=== PATIENT | male | born 1955 | race African-American/Black ===

== ENCOUNTER 2021-08-03 23:29 | Emergency (ER) | payer OTHER ==
[2021-08-03 23:54] LABS: #Monocytes 0.4 10x3/uL (0.0-1.1); %Basophils 0.2 % (0.0-2.0); %Eosinophils 0.8 % (0.0-6.0); %Lymphocytes 9.1 % (18.0-47.0); %Monocytes 8.9 % (0.0-10.0); %Neutrophils 80.6 % (40.0-75.0); Hemoglobin 9.5 g/dL (13.5-17.5); Mean Corpuscular HGB CONC 31.7 g/dL (32.0-36.0); Mean Corpuscular Hemoglobin 28.3 pg (27.0-33.0); Mean Corpuscular Volume 89.3 fl (81.2-95.1); Platelet Count 128 10x3/uL (150-450); Red Blood Cell (RBC) Count 3.36 10x6/uL (4.32-5.72)
[2021-08-04 00:14] LABS: ALT (SGPT) 16 U/L (8-55); AST (SGOT) 22 U/L (5-34); Alkaline Phosphatase 109 U/L (40-110); Anion Gap 16 mmol/L (10-20); BUN (Urea Nitrogen) 22 mg/dL (8.4-25.7); Bilirubin, Total 1.3 mg/dL (0.2-1.2); Calc. Creatinine Clearance 0 mL/min (70-130); Calcium 8.7 mg/dL (7.8-10.44); Carbon Dioxide 22 mmol/L (23-31); Chloride 102 mmol/L (98-107); Globulin 3.2 g/dL (2.4-3.5); Glucose 136 mg/dL (80-115); Potassium 3.9 mmol/L (3.5-5.1); Protein, Total 7.2 g/dL (5.8-8.1); Sodium 136 mmol/L (136-145)
[2021-08-04 00:28] LABS: SARS-CoV-2 NAA Rapid Test Not Detected (NotDetected)
[2021-08-04] MEDS ORDERED: Acetaminophen 500 MG TAB ONE (02:37)
[2021-08-04 06:02] LABS: Troponin I 0.025 ng/mL (< 0.028)
[2021-08-04] MEDS ORDERED: Insulin Regular 300 UNITS/3 ML VIAL ONE (07:54)
[2021-08-04] MEDS ORDERED: Furosemide 40 MG TAB ONE (08:11)
[2021-08-04] MEDS ORDERED: HumuLIN 70/30 (300 UNITS/3 ML VIAL) SC SCH (08:30)
[2021-08-04] MEDS ORDERED: Lisinopril 2.5 MG TAB PO SCH (08:30)
== END 2021-08-04 10:38 | disposition short-term general hospital (02) ==
LOC: EEVIPCON 23:29 → CSHERS 23:29
DX: I11.0 Hypertensive heart disease with heart failure (principal); I50.9 Heart failure, unspecified; N17.9 Acute kidney failure, unspecified; I25.2 Old myocardial infarction; E11.9 Type 2 diabetes mellitus without complications; Z79.4 Long term (current) use of insulin; E03.9 Hypothyroidism, unspecified; E78.5 Hyperlipidemia, unspecified; E78.2 Mixed hyperlipidemia; B20 Human immunodeficiency virus [HIV] disease; Z87.891 Personal history of nicotine dependence; Z79.899 Other long term (current) drug therapy; Z79.82 Long term (current) use of aspirin
CPT/HCPCS: 0240U; 36415; 36416; 71045; 74176; 80053; 83605; 83880; 84484; 85025; 93005; J1815

== ENCOUNTER 2021-12-13 11:55 | Emergency (ER) | payer OTHER ==
[2021-12-13 12:42] LABS: #Eosinphils 0.2 10x3/uL (0.0-0.5); #Monocytes 0.7 10x3/uL (0.0-1.1); #Neutrophils 5.8 10x3/uL (1.5-8.4); %Basophils 0.1 % (0.0-2.0); %Eosinophils 2.8 % (0.0-6.0); %Lymphocytes 12.8 % (18.0-47.0); %Monocytes 9.1 % (0.0-10.0); %Neutrophils 74.9 % (40.0-75.0); Hemoglobin 12.2 g/dL (13.5-17.5); Mean Corpuscular HGB CONC 33.8 g/dL (32.0-36.0); Mean Corpuscular Hemoglobin 29.7 pg (27.0-33.0); Mean Corpuscular Volume 87.8 fl (81.2-95.1); Mean Platelet Volume 10.9 fl (7.4-10.4); Platelet Count 180 10x3/uL (150-450); Red Blood Cell (RBC) Count 4.11 10x6/uL (4.32-5.72); White Blood Cell (WBC) Count 7.7 10x3/uL (3.5-10.5)
[2021-12-13 12:59] LABS: ALT (SGPT) 28 U/L (8-55); AST (SGOT) 27 U/L (5-34); Albumin 3.7 g/dL (3.4-4.8); Alkaline Phosphatase 79 U/L (40-110); Anion Gap 14 mmol/L (10-20); BUN (Urea Nitrogen) 44 mg/dL (8.4-25.7); Bilirubin, Total 1.9 mg/dL (0.2-1.2); Calc. Creatinine Clearance 0 mL/min (70-130); Calcium 9.7 mg/dL (7.8-10.44); Carbon Dioxide 29 mmol/L (23-31); Chloride 94 mmol/L (98-107); Globulin 3.4 g/dL (2.4-3.5); Glucose 214 mg/dL (80-115); Potassium 5.1 mmol/L (3.5-5.1); Protein, Total 7.1 g/dL (5.8-8.1); Sodium 132 mmol/L (136-145)
[2021-12-13 13:51] LABS: CKMB 2.5 ng/mL (0-6.6)
[2021-12-13 14:45] LABS: Bilirubin Neg (Negative); Blood, Urine Negative (Negative); Clarity Slightly Cloudy (Clear); Glucose, Urine (Dipstick) Normal (Negative); Ketone, Urine Negative (Negative); Leukocyte 100 (Negative); Nitrite Negative (Negative); Protein, Urine (Dipstick) Negative (Neg-Trace); Specific Gravity, Urine 1.005 (1.002-1.036)
[2021-12-13 14:57] LABS: Bacteria/HPF 4+ HPF (None Seen); Mucous/LPF None Seen LPF (<2+); RBC/HPF 0-3 HPF (0-3); Squamous Epithelial None Seen HPF (0-3); WBC/HPF 0-3 HPF (0-3)
[2021-12-13 15:06] LABS: SARS-CoV-2 NAA Rapid Test Not Detected (NotDetected)
== END 2021-12-13 21:25 ==
LOC: CSHERS 11:55 → EEVIPCON 11:55 → CSHERS 21:25
DX: R53.1 Weakness (principal); R79.89 Other specified abnormal findings of blood chemistry; Z20.822 Contact with and (suspected) exposure to COVID-19; E11.9 Type 2 diabetes mellitus without complications; Z79.4 Long term (current) use of insulin; J44.9 Chronic obstructive pulmonary disease, unspecified; I11.0 Hypertensive heart disease with heart failure; I50.9 Heart failure, unspecified
CPT/HCPCS: 71045; 72125; 72128; 72131; 80053; 81003; 81015; 82553; 83605; 83690; 84484; 85025; 93005; 94760; U0002

== ENCOUNTER → 2022-04-02 | Emergency (ER) | payer OTHER ==
[~2022-04-02] MED LIST: Diazepam 5 MG TAB ONE; Furosemide 40 MG/4 ML VIAL ONE; cefTRIAXone\\ROCEPHIN 1 GM VIAL ONE
[2022-04-02 14:35] LABS: #Monocytes 0.6 10x3/uL (0.0-1.1); #Neutrophils 4.4 10x3/uL (1.5-8.4); %Basophils 0.4 % (0.0-2.0); %Eosinophils 0.2 % (0.0-6.0); %Lymphocytes 7.4 % (18.0-47.0); %Monocytes 10.2 % (0.0-10.0); %Neutrophils 81.6 % (40.0-75.0); Hemoglobin 9.3 g/dL (13.5-17.5); Mean Corpuscular HGB CONC 32.5 g/dL (32.0-36.0); Mean Corpuscular Hemoglobin 30.9 pg (27.0-33.0); Mean Platelet Volume 11.1 fl (7.4-10.4); Platelet Count 138 10x3/uL (150-450); RBC Distribution Width 15.5 % (11.5-14.5); Red Blood Cell (RBC) Count 3.01 10x6/uL (4.32-5.72); White Blood Cell (WBC) Count 5.4 10x3/uL (3.5-10.5)
[2022-04-02 14:50] LABS: ALT (SGPT) 41 U/L (8-55); AST (SGOT) 42 U/L (5-34); Albumin 3.4 g/dL (3.4-4.8); Alkaline Phosphatase 81 U/L (40-110); Anion Gap 15 mmol/L (10-20); BUN (Urea Nitrogen) 24 mg/dL (8.4-25.7); Bilirubin, Total 1.8 mg/dL (0.2-1.2); Calc. Creatinine Clearance 0 mL/min (70-130); Calcium 9.1 mg/dL (7.8-10.44); Carbon Dioxide 22 mmol/L (23-31); Chloride 100 mmol/L (98-107); Estimated GFR 24; Globulin 3.2 g/dL (2.4-3.5); Glucose 273 mg/dL (80-115); Potassium 4.6 mmol/L (3.5-5.1); Protein, Total 6.6 g/dL (5.8-8.1); Sodium 132 mmol/L (136-145)
[2022-04-02 15:03] LABS: SARS-CoV-2 NAA Rapid Test Not Detected (NotDetected)
[2022-04-02 15:27] LABS: Bilirubin Neg (Negative); Blood, Urine 50 (Negative); Clarity Clear (Clear); Glucose, Urine (Dipstick) Normal (Negative); Ketone, Urine Negative (Negative); Leukocyte 25 (Negative); Nitrite Positive (Negative); Protein, Urine (Dipstick) 30 mg/dl (Neg-Trace); Specific Gravity, Urine 1.015 (1.002-1.036)
[2022-04-02 15:37] LABS: Bacteria/HPF 3+ HPF (None Seen)
== END ==
LOC: CSHERS 13:46
DX: I11.0 Hypertensive heart disease with heart failure (principal); I50.9 Heart failure, unspecified; N17.9 Acute kidney failure, unspecified; N39.0 Urinary tract infection, site not specified; I25.2 Old myocardial infarction; E11.9 Type 2 diabetes mellitus without complications; E03.9 Hypothyroidism, unspecified; E78.5 Hyperlipidemia, unspecified; E78.2 Mixed hyperlipidemia; B20 Human immunodeficiency virus [HIV] disease; J44.9 Chronic obstructive pulmonary disease, unspecified; Z79.4 Long term (current) use of insulin; Z87.891 Personal history of nicotine dependence; Z79.899 Other long term (current) drug therapy; Z20.822 Contact with and (suspected) exposure to COVID-19
CPT/HCPCS: 36415; 51702; 71045; 80053; 81003; 81015; 83880; 84484; 85025; 87077; 87086; 87186; 93005; 96365; 96375; J0696; J1940; U0002

== ENCOUNTER 2023-01-31 20:24 | Emergency (ER) | payer OTHER ==
[2023-01-31 21:56] LABS: #Eosinphils 0.1 10x3/uL (0.0-0.5); #Monocytes 0.7 10x3/uL (0.0-1.1); #Neutrophils 3.3 10x3/uL (1.5-8.4); %Basophils 0.4 % (0.0-2.0); %Eosinophils 2.6 % (0.0-6.0); %Lymphocytes 11.6 % (18.0-47.0); %Monocytes 14.2 % (0.0-10.0); Hemoglobin 9.5 g/dL (13.5-17.5); Mean Corpuscular HGB CONC 32.4 g/dL (32.0-36.0); Mean Corpuscular Hemoglobin 30.6 pg (27.0-33.0); Mean Corpuscular Volume 94.5 fl (81.2-95.1); Mean Platelet Volume 11.4 fl (7.4-10.4); Platelet Count 116 10x3/uL (150-450); RBC Distribution Width 16.2 % (11.5-14.5); White Blood Cell (WBC) Count 4.6 10x3/uL (3.5-10.5)
[2023-01-31 22:06] LABS: ALT (SGPT) 10 U/L (8-55); AST (SGOT) 18 U/L (5-34); Albumin 3.6 g/dL (3.4-4.8); Alkaline Phosphatase 92 U/L (40-110); Anion Gap 13 mmol/L (10-20); BUN (Urea Nitrogen) 29 mg/dL (8.4-25.7); Bilirubin, Total 1.6 mg/dL (0.2-1.2); Calc. Creatinine Clearance 0 mL/min (70-130); Calcium 9.1 mg/dL (7.8-10.44); Carbon Dioxide 25 mmol/L (23-31); Chloride 103 mmol/L (98-107); Estimated GFR 37; Globulin 3.2 g/dL (2.4-3.5); Glucose 98 mg/dL (80-115); Lipase 5 U/L (8-78); Magnesium 2.3 mg/dL (1.6-2.6); Potassium 3.9 mmol/L (3.5-5.1); Protein, Total 6.8 g/dL (5.8-8.1); Sodium 137 mmol/L (136-145)
[2023-01-31] MEDS ORDERED: Ondansetron PF 4 MG/2 ML Vial ONE (22:13)
[2023-01-31] MEDS ORDERED: Morphine 4 MG/ML VIAL ONE (22:16)
[2023-01-31 22:17] LABS: Bilirubin Neg (Negative); Blood, Urine 50 (Negative); Clarity Clear (Clear); Glucose, Urine (Dipstick) Normal (Negative); Ketone, Urine Negative (Negative); Leukocyte 500 (Negative); Nitrite Negative (Negative); Protein, Urine (Dipstick) 30 mg/dl (Neg-Trace)
[2023-01-31 22:24] LABS: Bacteria/HPF 1+ HPF (None Seen); CAUTI Indications for Culture Dysuria,urgency,freq; RBC/HPF 0-3 HPF (0-3); Squamous Epithelial 0-3 HPF (0-3)
[2023-01-31 22:25] LABS: Urine Culture Reflex Yes Yes
[2023-01-31] MEDS ORDERED: Furosemide 40 MG/4 ML VIAL ONE (22:32)
[2023-01-31] MEDS ORDERED: cefTRIAXone (ROCEPHIN) 1 GM VIAL ONE (22:39)
== END 2023-02-01 00:50 | disposition short-term general hospital (02) ==
LOC: EEVIPCON 20:24 → CSHERS 20:24
DX: N39.0 Urinary tract infection, site not specified (principal); R10.33 Periumbilical pain; I11.0 Hypertensive heart disease with heart failure; I50.9 Heart failure, unspecified; E11.9 Type 2 diabetes mellitus without complications; E03.9 Hypothyroidism, unspecified; E78.00 Pure hypercholesterolemia, unspecified; J44.9 Chronic obstructive pulmonary disease, unspecified; Z79.4 Long term (current) use of insulin
CPT/HCPCS: 36415; 71045; 74176; 76870; 80053; 81001; 83605; 83690; 83735; 83880; 84484; 85025; 87040; 87077; 87086; 87186; 93005; 93976; 96374; 96375; J0696; J1940; J2270; J2405

== ENCOUNTER 2023-02-26 04:51 | Inpatient (IN) | payer OTHER ==
[2023-02-26] MEDS ORDERED: Morphine 4 MG/ML VIAL ONE ×3 (05:09→14:22)
[2023-02-26] MEDS ORDERED: Ondansetron PF 4 MG/2 ML Vial ONE (05:09)
[2023-02-26 05:16] LABS: #Eosinphils 0.1 10x3/uL (0.0-0.5); #Monocytes 0.6 10x3/uL (0.0-1.1); #Neutrophils 4.1 10x3/uL (1.5-8.4); %Basophils 0.6 % (0.0-2.0); %Eosinophils 2.2 % (0.0-6.0); %Lymphocytes 9.6 % (18.0-47.0); %Monocytes 10.7 % (0.0-10.0); %Neutrophils 76.5 % (40.0-75.0); Hemoglobin 10.3 g/dL (13.5-17.5); Mean Corpuscular HGB CONC 32.4 g/dL (32.0-36.0); Mean Corpuscular Hemoglobin 30.7 pg (27.0-33.0); Mean Corpuscular Volume 94.6 fl (81.2-95.1); Mean Platelet Volume 11.6 fl (7.4-10.4); Platelet Count 104 10x3/uL (150-450); RBC Distribution Width 16.1 % (11.5-14.5); Red Blood Cell (RBC) Count 3.36 10x6/uL (4.32-5.72); White Blood Cell (WBC) Count 5.4 10x3/uL (3.5-10.5)
[2023-02-26 05:25] LABS: ALT (SGPT) 13 U/L (8-55); AST (SGOT) 24 U/L (5-34); Albumin 3.7 g/dL (3.4-4.8); Alkaline Phosphatase 67 U/L (40-110); Anion Gap 14 mmol/L (10-20); BUN (Urea Nitrogen) 36 mg/dL (8.4-25.7); Bilirubin, Total 1.5 mg/dL (0.2-1.2); Calc. Creatinine Clearance 0 mL/min (70-130); Calcium 8.9 mg/dL (7.8-10.44); Carbon Dioxide 20 mmol/L (23-31); Chloride 106 mmol/L (98-107); Estimated GFR 29; Globulin 3.2 g/dL (2.4-3.5); Glucose 77 mg/dL (80-115); Lipase 11 U/L (8-78); Magnesium 2.3 mg/dL (1.6-2.6); Potassium 4.4 mmol/L (3.5-5.1); Protein, Total 6.9 g/dL (5.8-8.1); Sodium 136 mmol/L (136-145)
[2023-02-26] MEDS ORDERED: Dextrose 50% Abboject 50 ML SYRINGE ONE (07:01)
[2023-02-26] MEDS ORDERED: Furosemide 40 MG/4 ML VIAL ONE (10:07)
[2023-02-26 14:27] LABS: Bilirubin Neg (Negative); Blood, Urine 10 (Negative); Clarity Clear (Clear); Glucose, Urine (Dipstick) Normal (Negative); Ketone, Urine Negative (Negative); Leukocyte 100 (Negative); Nitrite Negative (Negative); Protein, Urine (Dipstick) Negative (Neg-Trace); Specific Gravity, Urine 1.015 (1.005-1.030); Urobilinogen Normal mg/dL (Less than 2)
[2023-02-26 14:38] LABS: Bacteria/HPF None Seen HPF (None Seen); CAUTI Indications for Culture Pelvic or flank pain; RBC/HPF 0-3 HPF (0-3); Squamous Epithelial 0-3 HPF (0-3); WBC/HPF 0-3 HPF (0-3)
[2023-02-26 14:40] LABS: Urine Culture Reflex No No
[2023-02-26] MEDS ORDERED: Acetaminophen 650 MG Suppository PR PRN (16:00)
[2023-02-26] MEDS ORDERED: Ondansetron ODT 4 MG TAB PO PRN (16:00)
[2023-02-26] MEDS ORDERED: Acetaminophen 325 MG TAB PO PRN (16:00)
[2023-02-26 16:38] VITALS: BMI 25.4
[2023-02-26 17:31] LABS: Troponin I 0.029 ng/mL (< 0.028)
[2023-02-26 20:10] LABS: Troponin I 0.024 ng/mL (< 0.028)
[2023-02-26] MEDS: Insulin NPH Human Isophane 100 UNITS/ML (10 ML VIAL) SC SCH (21:00)
[2023-02-26] MEDS: Docusate 100 MG CAP PO SCH (21:00)
[2023-02-26] MEDS ORDERED: Lopinavir/Ritonavir 200-50mg TAB PO SCH ×2 (21:00)
[2023-02-26] MEDS ORDERED: Terazosin HCl 5 MG CAP PO SCH (21:00)
[2023-02-26] MEDS: Mometasone 100 MCG/PUFF (1 INHALER) INH SCH (22:05)
[2023-02-26] MEDS: Ipratropium Bromide 2.5 ml Neb NEB SCH (22:08)
[2023-02-26] MEDS: Raltegravir Potassium 400 MG TAB PO SCH (22:16)
[2023-02-26] MEDS: Carvedilol 6.25 MG TAB PO SCH (22:16)
[2023-02-26] MEDS: Heparin 5,000 UNITS/ML VIAL SC SCH (22:16)
[2023-02-26] MEDS: Atorvastatin Calcium 40 MG TAB PO SCH (22:16)
[2023-02-27] MEDS: Ipratropium Bromide 2.5 ml Neb NEB SCH ×2 (02:43→10:37)
[2023-02-27 05:31] LABS: #Eosinphils 0.1 10x3/uL (0.0-0.5); #Monocytes 0.6 10x3/uL (0.0-1.1); #Neutrophils 3.3 10x3/uL (1.5-8.4); %Basophils 0.6 % (0.0-2.0); %Eosinophils 2.6 % (0.0-6.0); %Lymphocytes 12.3 % (18.0-47.0); %Monocytes 11.9 % (0.0-10.0); %Neutrophils 72.2 % (40.0-75.0); Hemoglobin 9.7 g/dL (13.5-17.5); Mean Corpuscular HGB CONC 31.7 g/dL (32.0-36.0); Mean Corpuscular Hemoglobin 30.7 pg (27.0-33.0); Mean Corpuscular Volume 96.8 fl (81.2-95.1); Mean Platelet Volume 13.1 fl (7.4-10.4); Platelet Count 106 10x3/uL (150-450); RBC Distribution Width 16.2 % (11.5-14.5); Red Blood Cell (RBC) Count 3.16 10x6/uL (4.32-5.72); White Blood Cell (WBC) Count 4.6 10x3/uL (3.5-10.5)
[2023-02-27] MEDS: Levothyroxine Sodium 125 MCG TAB PO SCH (05:36)
[2023-02-27] MEDS: Furosemide 100 MG/10 ML VIAL SLOW IVP SCH ×2 (05:36→13:56)
[2023-02-27] MEDS: Mometasone 100 MCG/PUFF (1 INHALER) INH SCH ×2 (06:30→19:32)
[2023-02-27 06:51] LABS: Anion Gap 17 mmol/L (10-20); BUN (Urea Nitrogen) 38 mg/dL (8.4-25.7); Calc. Creatinine Clearance 34 mL/min (70-130); Calcium 8.8 mg/dL (7.8-10.44); Carbon Dioxide 19 mmol/L (23-31); Chloride 104 mmol/L (98-107); Estimated GFR 28; Glucose 253 mg/dL (80-115); Potassium 4.9 mmol/L (3.5-5.1); Sodium 135 mmol/L (136-145)
[2023-02-27] MEDS: Ipratropium/Albuterol 3 ML NEB NEB PRN ×3 (07:50→19:28)
[2023-02-27] MEDS: Raltegravir Potassium 400 MG TAB PO SCH ×2 (08:35→22:39)
[2023-02-27] MEDS: Insulin NPH Human Isophane 100 UNITS/ML (10 ML VIAL) SC SCH ×2 (08:35→21:00)
[2023-02-27] MEDS: Carvedilol 6.25 MG TAB PO SCH ×2 (08:36→22:38)
[2023-02-27] MEDS: Aspirin 81 mg Enteric Coated Tablet PO SCH (08:36)
[2023-02-27] MEDS: Spironolactone 25 MG TAB PO SCH (08:36)
[2023-02-27] MEDS: Ferrous Sulfate 325 MG TAB PO SCH (08:36)
[2023-02-27] MEDS: Docusate 100 MG CAP PO SCH ×2 (08:36→22:38)
[2023-02-27] MEDS: Heparin 5,000 UNITS/ML VIAL SC SCH ×2 (10:34→22:41)
[2023-02-27] MEDS: Ondansetron PF 4 MG/2 ML Vial IVP PRN (11:29)
[2023-02-27] MEDS ORDERED: Dextrose 5% in Water 1,000 ML IV PRN (14:03)
[2023-02-27] MEDS ORDERED: Glucagon 1 MG/ML KIT IM PRN (14:03)
[2023-02-27] MEDS ORDERED: Dextrose 50% Abboject 50 ML SYRINGE SLOW IVP PRN (14:03)
[2023-02-27] MEDS: HYDROcodone/Acetaminophen 5/325 mg Tablet PO PRN (15:38)
[2023-02-27] MEDS ORDERED: Furosemide 40 MG/4 ML VIAL SLOW IVP SCH (16:45)
[2023-02-27] MEDS ORDERED: Polyethylene Glycol 3350 17 GM Packet PO PRN (17:05)
[2023-02-27] MEDS: Albumin 25% 25 GM/100 ML BOT IVPB SCH ×2 (18:35→22:38)
[2023-02-27] MEDS: Senokot S 8.6-50 MG TAB PO SCH (22:38)
[2023-02-27] MEDS: Atorvastatin Calcium 40 MG TAB PO SCH (22:39)
[2023-02-27] MEDS: Tamsulosin HCl 0.4 MG CAP PO SCH (22:40)
[2023-02-28] MEDS: HYDROcodone/Acetaminophen 5/325 mg Tablet PO PRN (00:04)
[2023-02-28] MEDS: Raltegravir Potassium 400 MG TAB PO SCH ×3 (00:04→21:15)
[2023-02-28 04:51] LABS: Anion Gap 14 mmol/L (10-20); BUN (Urea Nitrogen) 41 mg/dL (8.4-25.7); Calc. Creatinine Clearance 36 mL/min (70-130); Calcium 8.9 mg/dL (7.8-10.44); Carbon Dioxide 21 mmol/L (23-31); Chloride 104 mmol/L (98-107); Estimated GFR 29; Glucose 234 mg/dL (80-115); Magnesium 2.2 mg/dL (1.6-2.6); Potassium 4.8 mmol/L (3.5-5.1); Sodium 134 mmol/L (136-145)
[2023-02-28 05:01] LABS: #Eosinphils 0.1 10x3/uL (0.0-0.5); #Monocytes 0.6 10x3/uL (0.0-1.1); #Neutrophils 3.6 10x3/uL (1.5-8.4); %Basophils 0.4 % (0.0-2.0); %Eosinophils 1.5 % (0.0-6.0); %Lymphocytes 11.1 % (18.0-47.0); %Monocytes 11.9 % (0.0-10.0); %Neutrophils 74.9 % (40.0-75.0); Hemoglobin 9.4 g/dL (13.5-17.5); Mean Corpuscular Hemoglobin 30.4 pg (27.0-33.0); Mean Corpuscular Volume 95.1 fl (81.2-95.1); Platelet Count 87 10x3/uL (150-450); Red Blood Cell (RBC) Count 3.09 10x6/uL (4.32-5.72); White Blood Cell (WBC) Count 4.8 10x3/uL (3.5-10.5)
[2023-02-28] MEDS: Furosemide 100 MG/10 ML VIAL SLOW IVP SCH ×2 (05:16→14:50)
[2023-02-28] MEDS: Albumin 25% 25 GM/100 ML BOT IVPB SCH ×2 (05:16→11:34)
[2023-02-28] MEDS: Levothyroxine Sodium 125 MCG TAB PO SCH (05:17)
[2023-02-28] MEDS ORDERED: Polyethylene Glycol 3350 17 GM Packet PO SCH (09:00)
[2023-02-28] MEDS: Senokot S 8.6-50 MG TAB PO SCH ×2 (09:29→21:15)
[2023-02-28] MEDS: Ferrous Sulfate 325 MG TAB PO SCH (09:29)
[2023-02-28] MEDS: Docusate 100 MG CAP PO SCH ×2 (09:30→21:15)
[2023-02-28] MEDS: Spironolactone 25 MG TAB PO SCH (09:30)
[2023-02-28] MEDS: Aspirin 81 mg Enteric Coated Tablet PO SCH (09:30)
[2023-02-28] MEDS: Insulin NPH Human Isophane 100 UNITS/ML (10 ML VIAL) SC SCH ×2 (09:31→21:14)
[2023-02-28] MEDS: Carvedilol 6.25 MG TAB PO SCH ×2 (09:34→21:15)
[2023-02-28] MEDS: Mometasone 100 MCG/PUFF (1 INHALER) INH SCH ×2 (10:00→18:30)
[2023-02-28] MEDS ORDERED: Mineral Oil ENEMA PR PRN (11:25)
[2023-02-28] MEDS ORDERED: Mineral Oil ENEMA PR SCH (11:30)
[2023-02-28] MEDS ORDERED: GoLYTELY 4,000 ml Bottle PO SCH (18:45)
[2023-02-28] MEDS: Ipratropium/Albuterol 3 ML NEB NEB PRN (19:06)
[2023-02-28] MEDS: HumaLOG 300 UNITS/3 ML VIAL SC PRN (21:14)
[2023-02-28] MEDS: Atorvastatin Calcium 40 MG TAB PO SCH (21:15)
[2023-02-28] MEDS: Tamsulosin HCl 0.4 MG CAP PO SCH (21:15)
[2023-03-01 04:47] LABS: Anion Gap 13 mmol/L (10-20); BUN (Urea Nitrogen) 42 mg/dL (8.4-25.7); Calc. Creatinine Clearance 37 mL/min (70-130); Calcium 9.2 mg/dL (7.8-10.44); Carbon Dioxide 24 mmol/L (23-31); Chloride 102 mmol/L (98-107); Estimated GFR 32; Glucose 217 mg/dL (80-115); Potassium 4.3 mmol/L (3.5-5.1); Sodium 135 mmol/L (136-145)
[2023-03-01] MEDS: Furosemide 100 MG/10 ML VIAL SLOW IVP SCH ×2 (05:48→15:21)
[2023-03-01] MEDS: Ipratropium/Albuterol 3 ML NEB NEB PRN (05:50)
[2023-03-01] MEDS: Ondansetron PF 4 MG/2 ML Vial IVP PRN (05:51)
[2023-03-01] MEDS: Levothyroxine Sodium 125 MCG TAB PO SCH (06:32)
[2023-03-01] MEDS ORDERED: Bisacodyl 10 MG SUPP PR PRN (09:11)
[2023-03-01] MEDS ORDERED: Bisacodyl 5 MG TAB PO PRN (09:11)
[2023-03-01] MEDS: Ferrous Sulfate 325 MG TAB PO SCH (12:55)
[2023-03-01] MEDS: Aspirin 81 mg Enteric Coated Tablet PO SCH (12:56)
[2023-03-01] MEDS: Docusate 100 MG CAP PO SCH ×2 (12:56→21:57)
[2023-03-01] MEDS: Carvedilol 6.25 MG TAB PO SCH ×2 (12:56→21:57)
[2023-03-01] MEDS: Insulin NPH Human Isophane 100 UNITS/ML (10 ML VIAL) SC SCH ×2 (12:57→22:00)
[2023-03-01] MEDS: Polyethylene Glycol 3350 17 GM Packet PO SCH (12:57)
[2023-03-01] MEDS: Raltegravir Potassium 400 MG TAB PO SCH ×2 (12:58→21:57)
[2023-03-01] MEDS: Senokot S 8.6-50 MG TAB PO SCH ×2 (12:58→21:57)
[2023-03-01] MEDS: Spironolactone 25 MG TAB PO SCH (12:58)
[2023-03-01] MEDS: Mometasone 100 MCG/PUFF (1 INHALER) INH SCH (18:45)
[2023-03-01] MEDS: Atorvastatin Calcium 40 MG TAB PO SCH (21:56)
[2023-03-01] MEDS: Tamsulosin HCl 0.4 MG CAP PO SCH (21:59)
[2023-03-01] MEDS: HumaLOG 300 UNITS/3 ML VIAL SC PRN (22:14)
[2023-03-02] MEDS: Furosemide 100 MG/10 ML VIAL SLOW IVP SCH ×2 (05:49→15:01)
[2023-03-02] MEDS: Levothyroxine Sodium 125 MCG TAB PO SCH (05:49)
[2023-03-02 05:54] LABS: #Eosinphils 0.2 10x3/uL (0.0-0.5); #Monocytes 0.7 10x3/uL (0.0-1.1); #Neutrophils 4.5 10x3/uL (1.5-8.4); %Basophils 0.3 % (0.0-2.0); %Eosinophils 2.5 % (0.0-6.0); %Lymphocytes 10.9 % (18.0-47.0); %Monocytes 11.9 % (0.0-10.0); %Neutrophils 74.1 % (40.0-75.0); Hemoglobin 9.8 g/dL (13.5-17.5); Mean Corpuscular HGB CONC 32.8 g/dL (32.0-36.0); Mean Corpuscular Hemoglobin 30.8 pg (27.0-33.0); Mean Platelet Volume 12.4 fl (7.4-10.4); Platelet Count 113 10x3/uL (150-450); RBC Distribution Width 16.2 % (11.5-14.5); Red Blood Cell (RBC) Count 3.18 10x6/uL (4.32-5.72); White Blood Cell (WBC) Count 6.1 10x3/uL (3.5-10.5)
[2023-03-02 05:55] LABS: Anion Gap 14 mmol/L (10-20); BUN (Urea Nitrogen) 37 mg/dL (8.4-25.7); Calc. Creatinine Clearance 41 mL/min (70-130); Calcium 9.2 mg/dL (7.8-10.44); Carbon Dioxide 24 mmol/L (23-31); Chloride 102 mmol/L (98-107); Estimated GFR 35; Glucose 124 mg/dL (80-115); Magnesium 2.2 mg/dL (1.6-2.6); Potassium 4.3 mmol/L (3.5-5.1); Sodium 136 mmol/L (136-145)
[2023-03-02] MEDS: HYDROcodone/Acetaminophen 5/325 mg Tablet PO PRN (06:08)
[2023-03-02] MEDS: Mometasone 100 MCG/PUFF (1 INHALER) INH SCH ×2 (07:28→19:02)
[2023-03-02] MEDS: Spironolactone 25 MG TAB PO SCH (09:01)
[2023-03-02] MEDS: Carvedilol 6.25 MG TAB PO SCH ×2 (09:01→21:59)
[2023-03-02] MEDS: Aspirin 81 mg Enteric Coated Tablet PO SCH (09:02)
[2023-03-02] MEDS: Docusate 100 MG CAP PO SCH ×2 (09:02→21:59)
[2023-03-02] MEDS: Senokot S 8.6-50 MG TAB PO SCH ×2 (09:02→21:59)
[2023-03-02] MEDS: Raltegravir Potassium 400 MG TAB PO SCH ×2 (09:02→21:59)
[2023-03-02] MEDS: Ferrous Sulfate 325 MG TAB PO SCH ×2 (09:02→09:08)
[2023-03-02] MEDS: Polyethylene Glycol 3350 17 GM Packet PO SCH ×3 (09:03→22:00)
[2023-03-02] MEDS: Insulin NPH Human Isophane 100 UNITS/ML (10 ML VIAL) SC SCH ×2 (09:03→22:00)
[2023-03-02] MEDS ORDERED: Magnesium Citrate 300 ML BOT PO SCH (13:00)
[2023-03-02] MEDS ORDERED: Metoclopramide HCl 10 MG/2 ML VIAL IVP SCH (13:00)
[2023-03-02] MEDS: Albumin 25% 25 GM/100 ML BOT IVPB SCH ×2 (13:09→18:11)
[2023-03-02] MEDS: Tamsulosin HCl 0.4 MG CAP PO SCH (21:59)
[2023-03-02] MEDS: Atorvastatin Calcium 40 MG TAB PO SCH (21:59)
[2023-03-02] MEDS: HumaLOG 300 UNITS/3 ML VIAL SC PRN (22:46)
[2023-03-03] MEDS: Levothyroxine Sodium 125 MCG TAB PO SCH (05:21)
[2023-03-03] MEDS: Furosemide 100 MG/10 ML VIAL SLOW IVP SCH (05:21)
[2023-03-03] MEDS: Albumin 25% 25 GM/100 ML BOT IVPB SCH (05:22)
[2023-03-03 05:32] LABS: Anion Gap 13 mmol/L (10-20); BUN (Urea Nitrogen) 38 mg/dL (8.4-25.7); Calc. Creatinine Clearance 0 mL/min (70-130); Calcium 9.4 mg/dL (7.8-10.44); Carbon Dioxide 26 mmol/L (23-31); Chloride 101 mmol/L (98-107); Estimated GFR 32; Glucose 193 mg/dL (80-115); Magnesium 2.5 mg/dL (1.6-2.6); Potassium 4.3 mmol/L (3.5-5.1); Sodium 136 mmol/L (136-145)
[2023-03-03] MEDS: HumaLOG 300 UNITS/3 ML VIAL SC PRN (06:31)
[2023-03-03] MEDS: Mometasone 100 MCG/PUFF (1 INHALER) INH SCH (06:35)
[2023-03-03] MEDS: Spironolactone 25 MG TAB PO SCH (09:37)
[2023-03-03] MEDS: Senokot S 8.6-50 MG TAB PO SCH (09:51)
[2023-03-03] MEDS: Raltegravir Potassium 400 MG TAB PO SCH (09:51)
[2023-03-03] MEDS: Aspirin 81 mg Enteric Coated Tablet PO SCH (09:51)
[2023-03-03] MEDS: Ferrous Sulfate 325 MG TAB PO SCH (09:51)
[2023-03-03] MEDS: Docusate 100 MG CAP PO SCH (09:51)
[2023-03-03] MEDS: Polyethylene Glycol 3350 17 GM Packet PO SCH ×2 (09:52→17:08)
[2023-03-03] MEDS: Carvedilol 6.25 MG TAB PO SCH (09:52)
[2023-03-03] MEDS: Insulin NPH Human Isophane 100 UNITS/ML (10 ML VIAL) SC SCH (10:05)
[2023-03-03] MEDS ORDERED: Albumin 25% 25 GM/100 ML BOT IVPB SCH (12:00)
[2023-03-03] MEDS ORDERED: Furosemide 40 MG TAB PO SCH (14:00)
[2023-03-03 18:03] VITALS: BP 106/63; TEMP 98.4
== END 2023-03-03 19:25 | disposition home or self-care (01) | DRG 291 ==
LOC: EEVIPCON 04:51 → SUATTDRO 04:51 → CSHERS 04:51 → CSHTELE 15:25 → INTOOBSV 15:25 → OBSVTOIN 16:51
PROVIDERS: ADMIT Internal Medicine; ATTEND Internal Medicine
PROC: 30233J1 Transfusion of Nonautologous Serum Albumin into Peripheral Vein, Percutaneous Approach (ICD-10-PCS; principal; 2023-02-27)
DX: I50.23 Acute on chronic systolic (congestive) heart failure (principal); J96.01 Acute respiratory failure with hypoxia; N17.9 Acute kidney failure, unspecified; N18.4 Chronic kidney disease, stage 4 (severe); R18.8 Other ascites; J98.11 Atelectasis; E11.22 Type 2 diabetes mellitus with diabetic chronic kidney disease; E78.5 Hyperlipidemia, unspecified; I25.10 Atherosclerotic heart disease of native coronary artery without angina pectoris; E03.9 Hypothyroidism, unspecified; J44.9 Chronic obstructive pulmonary disease, unspecified; K59.00 Constipation, unspecified; I25.5 Ischemic cardiomyopathy; B19.20 Unspecified viral hepatitis C without hepatic coma; I12.9 Hypertensive chronic kidney disease with stage 1 through stage 4 chronic kidney disease, or unspecified chronic kidney disease; Z21 Asymptomatic human immunodeficiency virus [HIV] infection status; E11.649 Type 2 diabetes mellitus with hypoglycemia without coma; Z88.0 Allergy status to penicillin; Z91.010 Allergy to peanuts; Z79.51 Long term (current) use of inhaled steroids; Z79.82 Long term (current) use of aspirin; Z79.4 Long term (current) use of insulin; Z79.899 Other long term (current) drug therapy; Z95.810 Presence of automatic (implantable) cardiac defibrillator; Z95.5 Presence of coronary angioplasty implant and graft; Z87.891 Personal history of nicotine dependence
CPT/HCPCS: 36415; 36416; 71045; 74018; 74176; 80048; 80053; 81001; 83690; 83735; 83880; 84484; 85025; 87086; 93005; 93010; 93306; 94760; 94762; 96361; 96374; 96375; 96376; G0378; J1644; J1815; J1940; J2270; J2405; J2765; J7620; J7999; P9047; Q0162

== ENCOUNTER 2023-04-08 20:07 | Emergency (ER) | payer OTHER ==
[~2023-04-08 20:07] MED LIST changes: -Diazepam 5 MG TAB ONE; -Furosemide 40 MG/4 ML VIAL ONE; +Iopamidol 300 61% 100 ML VIAL FS ONE; -cefTRIAXone\\ROCEPHIN 1 GM VIAL ONE
[2023-04-08 21:13] LABS: Bilirubin Neg (Negative); Blood, Urine Negative (Negative); Clarity Clear (Clear); Glucose, Urine (Dipstick) Normal (Negative); Ketone, Urine Negative (Negative); Leukocyte Negative (Negative); Nitrite Negative (Negative); Protein, Urine (Dipstick) Negative (Neg-Trace); Urobilinogen Normal mg/dL (Less than 2)
[2023-04-08 21:26] LABS: ALT (SGPT) 15 U/L (8-55); AST (SGOT) 25 U/L (5-34); Albumin 3.7 g/dL (3.4-4.8); Alkaline Phosphatase 62 U/L (40-110); Anion Gap 17 mmol/L (10-20); BUN (Urea Nitrogen) 47 mg/dL (8.4-25.7); Bilirubin, Total 1.1 mg/dL (0.2-1.2); Calc. Creatinine Clearance 0 mL/min (70-130); Calcium 9.4 mg/dL (7.8-10.44); Carbon Dioxide 23 mmol/L (23-31); Chloride 102 mmol/L (98-107); Estimated GFR 31; Globulin 3.1 g/dL (2.4-3.5); Glucose 104 mg/dL (80-115); Lipase 8 U/L (8-78); Potassium 4.6 mmol/L (3.5-5.1); Protein, Total 6.8 g/dL (5.8-8.1); Sodium 137 mmol/L (136-145)
[2023-04-08 21:27] LABS: Bacteria/HPF None Seen HPF (None Seen); CAUTI Indications for Culture Pelvic or flank pain; RBC/HPF None Seen HPF (0-3); Squamous Epithelial None Seen HPF (0-3); WBC/HPF 0-3 HPF (0-3)
[2023-04-08 21:28] LABS: Urine Culture Reflex No No
[2023-04-08 21:32] LABS: #Monocytes 0.6 10x3/uL (0.0-1.1); #Neutrophils 4.6 10x3/uL (1.5-8.4); %Eosinophils 0.7 % (0.0-6.0); %Lymphocytes 9.5 % (18.0-47.0); %Monocytes 9.6 % (0.0-10.0); Hematocrit 35.2 % (38.8-50.0); Hemoglobin 11.7 g/dL (13.5-17.5); Mean Corpuscular HGB CONC 33.2 g/dL (32.0-36.0); Mean Corpuscular Hemoglobin 30.4 pg (27.0-33.0); Mean Corpuscular Volume 91.4 fl (81.2-95.1); Mean Platelet Volume 12.3 fl (7.4-10.4); Platelet Count 128 10x3/uL (150-450); RBC Distribution Width 16.6 % (11.5-14.5); Red Blood Cell (RBC) Count 3.85 10x6/uL (4.32-5.72); White Blood Cell (WBC) Count 5.7 10x3/uL (3.5-10.5)
== END 2023-04-08 22:29 ==
LOC: CSHERS 20:07
DX: K59.00 Constipation, unspecified (principal); R18.8 Other ascites; E11.9 Type 2 diabetes mellitus without complications; E03.9 Hypothyroidism, unspecified; E78.2 Mixed hyperlipidemia; I10 Essential (primary) hypertension; J44.9 Chronic obstructive pulmonary disease, unspecified; Z87.891 Personal history of nicotine dependence; Z79.82 Long term (current) use of aspirin; Z79.4 Long term (current) use of insulin; Z79.899 Other long term (current) drug therapy
CPT/HCPCS: 36415; 51702; 74177; 80053; 81001; 83690; 85025; Q9967

== ENCOUNTER 2023-04-29 09:09 | Inpatient (IN) | payer OTHER ==
[2023-04-29] MEDS ORDERED: Ondansetron ODT 4 MG TAB PO PRN (10:06)
[2023-04-29] MEDS ORDERED: Dextrose 5% in Water 1,000 ML IV PRN (10:11)
[2023-04-29] MEDS ORDERED: Glucagon 1 MG/ML KIT IM PRN (10:11)
[2023-04-29] MEDS ORDERED: Dextrose 50% Abboject 50 ML SYRINGE SLOW IVP PRN (10:11)
[2023-04-29] MEDS ORDERED: Furosemide 40 MG/4 ML VIAL SLOW IVP SCH (10:45)
[2023-04-29] MEDS ORDERED: Famotidine 20 MG TAB PO SCH (10:45)
[2023-04-29] MEDS ORDERED: Aspirin 81 mg Enteric Coated Tablet PO SCH (10:45)
[2023-04-29] MEDS: Furosemide 40 MG/4 ML VIAL SLOW IVP SCH (13:26)
[2023-04-29] MEDS: Acetaminophen 325 MG TAB PO PRN (13:27)
[2023-04-29] MEDS ORDERED: Morphine 2 MG/ML VIAL SLOW IVP PRN (14:32)
[2023-04-29] MEDS: traMADol HCl 50 MG TAB PO PRN (14:48)
[2023-04-29] MEDS ORDERED: Ventolin HFA Inhaler 60 PUFF INHALER INH PRN (17:36)
[2023-04-29] MEDS: Mometasone 100 MCG/PUFF (1 INHALER) INH SCH (19:35)
[2023-04-29] MEDS: Carvedilol 6.25 MG TAB PO SCH (21:51)
[2023-04-29] MEDS: Terazosin HCl 5 MG CAP PO SCH (21:51)
[2023-04-29] MEDS: Famotidine 20 MG TAB PO SCH (21:51)
[2023-04-29] MEDS: Atorvastatin Calcium 40 MG TAB PO SCH (21:51)
[2023-04-29] MEDS: Docusate 100 MG CAP PO SCH (21:51)
[2023-04-30 03:08] LABS: #Eosinphils 0.1 10x3/uL (0.0-0.5); #Monocytes 0.5 10x3/uL (0.0-1.1); #Neutrophils 3.3 10x3/uL (1.5-8.4); %Basophils 0.5 % (0.0-2.0); %Eosinophils 2.1 % (0.0-6.0); %Lymphocytes 9.6 % (18.0-47.0); %Monocytes 11.4 % (0.0-10.0); %Neutrophils 75.9 % (40.0-75.0); Hematocrit 32.1 % (38.8-50.0); Hemoglobin 10.4 g/dL (13.5-17.5); Mean Corpuscular HGB CONC 32.4 g/dL (32.0-36.0); Mean Corpuscular Hemoglobin 28.9 pg (27.0-33.0); Mean Corpuscular Volume 89.2 fl (81.2-95.1); Mean Platelet Volume 11.5 fl (7.4-10.4); Platelet Count 212 10x3/uL (150-450); RBC Distribution Width 16.5 % (11.5-14.5); White Blood Cell (WBC) Count 4.4 10x3/uL (3.5-10.5)
[2023-04-30 03:45] LABS: ALT (SGPT) 9 U/L (8-55); AST (SGOT) 19 U/L (5-34); Albumin 3.1 g/dL (3.4-4.8); Alkaline Phosphatase 59 U/L (40-110); Anion Gap 16 mmol/L (10-20); BUN (Urea Nitrogen) 19 mg/dL (8.4-25.7); Bilirubin, Total 1.2 mg/dL (0.2-1.2); Calc. Creatinine Clearance 44 mL/min (70-130); Calcium 8.2 mg/dL (7.8-10.44); Carbon Dioxide 21 mmol/L (23-31); Chloride 100 mmol/L (98-107); Estimated GFR 37; Globulin 3.4 g/dL (2.4-3.5); Glucose 205 mg/dL (80-115); Potassium 3.7 mmol/L (3.5-5.1); Protein, Total 6.5 g/dL (5.8-8.1); Sodium 133 mmol/L (136-145)
[2023-04-30] MEDS: Furosemide 40 MG/4 ML VIAL SLOW IVP SCH ×2 (05:37→17:02)
[2023-04-30] MEDS: Insulin Regular 300 UNITS/3 ML VIAL SC PRN ×3 (05:37→18:47)
[2023-04-30] MEDS: traMADol HCl 50 MG TAB PO PRN ×3 (05:38→20:58)
[2023-04-30 06:07] VITALS: BMI 26.3
[2023-04-30] MEDS ORDERED: Spironolactone 25 MG TAB PO SCH ×2 (08:00→09:00)
[2023-04-30] MEDS: Aspirin 81 mg Enteric Coated Tablet PO SCH (10:44)
[2023-04-30] MEDS: Docusate 100 MG CAP PO SCH ×2 (10:44→20:56)
[2023-04-30] MEDS: Carvedilol 6.25 MG TAB PO SCH ×2 (10:44→20:58)
[2023-04-30] MEDS: Venlafaxine HCl XR 75 MG CAP PO SCH (10:44)
[2023-04-30] MEDS: Mometasone 100 MCG/PUFF (1 INHALER) INH SCH ×2 (12:30→19:00)
[2023-04-30] MEDS: cefTRIAXone\\ROCEPHIN 2 GM in Sodium Chloride 0.9% 100 ML IVPB SCH (14:37)
[2023-04-30] MEDS: Famotidine 20 MG TAB PO SCH (14:54)
[2023-04-30 16:34] LABS: HBSAg Index 0.16 S/CO (0-0.99); Hep B Surf Ag Non-Reactive S/CO (NonReactive)
[2023-04-30] MEDS: Atorvastatin Calcium 40 MG TAB PO SCH (20:56)
[2023-04-30] MEDS: Terazosin HCl 5 MG CAP PO SCH (20:56)
[2023-05-01 01:12] LABS: HBSAB Concentration 36.13 mIU/mL; Hep B Surf AB Reactive (NonReactive)
[2023-05-01 01:13] LABS: Hep B Core Total Ab Reactive (NonReactive); Hep B Core Total Index 7.69 S/CO (0-0.79)
[2023-05-01] MEDS: Furosemide 40 MG/4 ML VIAL SLOW IVP SCH ×2 (05:15→14:44)
[2023-05-01] MEDS: Venlafaxine HCl XR 75 MG CAP PO SCH (08:16)
[2023-05-01] MEDS: Famotidine 20 MG TAB PO SCH (08:16)
[2023-05-01] MEDS: Carvedilol 6.25 MG TAB PO SCH ×2 (08:16→21:13)
[2023-05-01] MEDS: Spironolactone 25 MG TAB PO SCH (08:16)
[2023-05-01] MEDS: Docusate 100 MG CAP PO SCH ×2 (08:17→21:14)
[2023-05-01] MEDS: Aspirin 81 mg Enteric Coated Tablet PO SCH (08:17)
[2023-05-01] MEDS: traMADol HCl 50 MG TAB PO PRN (08:33)
[2023-05-01] MEDS: Mometasone 100 MCG/PUFF (1 INHALER) INH SCH ×2 (08:55→20:50)
[2023-05-01] MEDS ORDERED: Sodium Bicarbonate 2.5 MEQ/5 ML VIAL ONE (09:14)
[2023-05-01] MEDS ORDERED: Lidocaine 1% PF 5 ML VIAL ONE (09:14)
[2023-05-01 10:55] LABS: BF Color Yellow; Body Fluid Source Ascites Body Fluid; Clarity Cloudy/Turbid (Clear); Tube # EDTA
[2023-05-01 11:36] LABS: #Eosinphils 0.1 10x3/uL (0.0-0.5); #Monocytes 0.5 10x3/uL (0.0-1.1); #Neutrophils 1.8 10x3/uL (1.5-8.4); %Basophils 0.7 % (0.0-2.0); %Eosinophils 2.3 % (0.0-6.0); %Lymphocytes 21.6 % (18.0-47.0); %Monocytes 14.8 % (0.0-10.0); %Neutrophils 60.3 % (40.0-75.0); ALT (SGPT) Less than 7 U/L (8-55); AST (SGOT) 17 U/L (5-34); Alkaline Phosphatase 58 U/L (40-110); Anion Gap 13 mmol/L (10-20); BUN (Urea Nitrogen) 22 mg/dL (8.4-25.7); Bilirubin, Total 0.9 mg/dL (0.2-1.2); Calc. Creatinine Clearance 39 mL/min (70-130); Calcium 8.2 mg/dL (7.8-10.44); Carbon Dioxide 24 mmol/L (23-31); Chloride 100 mmol/L (98-107); Estimated GFR 32; Globulin 3.3 g/dL (2.4-3.5); Glucose 218 mg/dL (80-115); Hematocrit 31.8 % (38.8-50.0); Hemoglobin 10.3 g/dL (13.5-17.5); Mean Corpuscular HGB CONC 32.4 g/dL (32.0-36.0); Mean Corpuscular Volume 89.6 fl (81.2-95.1); Mean Platelet Volume 11.4 fl (7.4-10.4); Platelet Count 200 10x3/uL (150-450); Protein, Total 6.3 g/dL (5.8-8.1); RBC Distribution Width 16.4 % (11.5-14.5); Red Blood Cell (RBC) Count 3.55 10x6/uL (4.32-5.72); Sodium 133 mmol/L (136-145); White Blood Cell (WBC) Count 3.1 10x3/uL (3.5-10.5)
[2023-05-01 11:52] LABS: BF Segmented Neutrophils 54 %; Cell Count Non Hematic 40 %; Lymphocytes 6 %
[2023-05-01] MEDS: Albumin 25% 25 GM/100 ML BOT IVPB SCH ×2 (12:52→18:58)
[2023-05-01] MEDS: cefTRIAXone\\ROCEPHIN 2 GM in Sodium Chloride 0.9% 100 ML IVPB SCH (14:44)
[2023-05-01] MEDS: Atorvastatin Calcium 40 MG TAB PO SCH (21:13)
[2023-05-01] MEDS: Terazosin HCl 5 MG CAP PO SCH (21:14)
[2023-05-02] MEDS: Albumin 25% 25 GM/100 ML BOT IVPB SCH ×2 (00:59→05:02)
[2023-05-02] MEDS: traMADol HCl 50 MG TAB PO PRN ×3 (01:04→22:46)
[2023-05-02 04:47] LABS: ALT (SGPT) Less than 7 U/L (8-55); AST (SGOT) 15 U/L (5-34); Albumin 3.2 g/dL (3.4-4.8); Alkaline Phosphatase 49 U/L (40-110); Anion Gap 15 mmol/L (10-20); BUN (Urea Nitrogen) 23 mg/dL (8.4-25.7); Bilirubin, Total 0.9 mg/dL (0.2-1.2); Calc. Creatinine Clearance 44 mL/min (70-130); Calcium 8.2 mg/dL (7.8-10.44); Carbon Dioxide 19 mmol/L (23-31); Chloride 101 mmol/L (98-107); Estimated GFR 37; Globulin 2.7 g/dL (2.4-3.5); Glucose 243 mg/dL (80-115); Potassium 4.1 mmol/L (3.5-5.1); Protein, Total 5.9 g/dL (5.8-8.1); Sodium 131 mmol/L (136-145)
[2023-05-02 04:57] LABS: #Monocytes 0.6 10x3/uL (0.0-1.1); #Neutrophils 3.3 10x3/uL (1.5-8.4); %Basophils 0.6 % (0.0-2.0); %Eosinophils 0.6 % (0.0-6.0); %Lymphocytes 16.8 % (18.0-47.0); %Neutrophils 69.8 % (40.0-75.0); Hematocrit 31.5 % (38.8-50.0); Hemoglobin 10.7 g/dL (13.5-17.5); Mean Corpuscular Hemoglobin 29.5 pg (27.0-33.0); Mean Corpuscular Volume 86.8 fl (81.2-95.1); Mean Platelet Volume 12.2 fl (7.4-10.4); Platelet Count 193 10x3/uL (150-450); RBC Distribution Width 16.1 % (11.5-14.5); Red Blood Cell (RBC) Count 3.63 10x6/uL (4.32-5.72); White Blood Cell (WBC) Count 4.8 10x3/uL (3.5-10.5)
[2023-05-02] MEDS: Furosemide 40 MG/4 ML VIAL SLOW IVP SCH ×2 (05:02→13:33)
[2023-05-02] MEDS: Mometasone 100 MCG/PUFF (1 INHALER) INH SCH ×2 (07:50→20:45)
[2023-05-02] MEDS: Docusate 100 MG CAP PO SCH ×2 (09:04→21:26)
[2023-05-02] MEDS: Spironolactone 25 MG TAB PO SCH (09:04)
[2023-05-02] MEDS: Carvedilol 6.25 MG TAB PO SCH ×2 (09:04→20:35)
[2023-05-02] MEDS: Famotidine 20 MG TAB PO SCH (09:04)
[2023-05-02] MEDS: Aspirin 81 mg Enteric Coated Tablet PO SCH (09:04)
[2023-05-02] MEDS: Venlafaxine HCl XR 75 MG CAP PO SCH (09:04)
[2023-05-02] MEDS: Insulin Regular 300 UNITS/3 ML VIAL SC PRN ×2 (13:34→17:27)
[2023-05-02 17:46] LABS: Bilirubin Neg (Negative); Blood, Urine 150 (Negative); Clarity Clear (Clear); Glucose, Urine (Dipstick) Normal (Negative); Ketone, Urine Negative (Negative); Leukocyte 100 (Negative); Nitrite Negative (Negative); Protein, Urine (Dipstick) 30 mg/dl (Neg-Trace); Urobilinogen Normal mg/dL (Less than 2)
[2023-05-02 18:02] LABS: Bacteria/HPF Rare-Few HPF (None Seen); CAUTI Indications for Culture Alt mental st,lethar; Squamous Epithelial 0-3 HPF (0-3); WBC/HPF 21-50 HPF (0-3)
[2023-05-02 18:05] LABS: Urine Culture Reflex Yes Yes
[2023-05-02] MEDS: Atorvastatin Calcium 40 MG TAB PO SCH (21:26)
[2023-05-02] MEDS: Terazosin HCl 5 MG CAP PO SCH (23:35)
[2023-05-03 05:38] LABS: #Eosinphils 0.1 10x3/uL (0.0-0.5); #Monocytes 0.7 10x3/uL (0.0-1.1); #Neutrophils 4.2 10x3/uL (1.5-8.4); %Basophils 0.5 % (0.0-2.0); %Eosinophils 1.1 % (0.0-6.0); %Lymphocytes 17.7 % (18.0-47.0); %Monocytes 11.5 % (0.0-10.0); %Neutrophils 68.7 % (40.0-75.0); Hematocrit 33.8 % (38.8-50.0); Hemoglobin 11.4 g/dL (13.5-17.5); Mean Corpuscular HGB CONC 33.7 g/dL (32.0-36.0); Mean Platelet Volume 12.1 fl (7.4-10.4); Platelet Count 228 10x3/uL (150-450); RBC Distribution Width 16.2 % (11.5-14.5); Red Blood Cell (RBC) Count 3.93 10x6/uL (4.32-5.72); White Blood Cell (WBC) Count 6.2 10x3/uL (3.5-10.5)
[2023-05-03 05:46] LABS: ALT (SGPT) Less than 7 U/L (8-55); AST (SGOT) 14 U/L (5-34); Albumin 3.1 g/dL (3.4-4.8); Alkaline Phosphatase 56 U/L (40-110); Anion Gap 14 mmol/L (10-20); BUN (Urea Nitrogen) 20 mg/dL (8.4-25.7); Bilirubin, Total 1.1 mg/dL (0.2-1.2); Calc. Creatinine Clearance 48 mL/min (70-130); Calcium 8.5 mg/dL (7.8-10.44); Carbon Dioxide 24 mmol/L (23-31); Chloride 102 mmol/L (98-107); Estimated GFR 41; Globulin 2.7 g/dL (2.4-3.5); Glucose 203 mg/dL (80-115); Potassium 3.9 mmol/L (3.5-5.1); Protein, Total 5.8 g/dL (5.8-8.1); Sodium 136 mmol/L (136-145)
[2023-05-03] MEDS: Insulin Regular 300 UNITS/3 ML VIAL SC PRN ×2 (07:17→22:02)
[2023-05-03] MEDS: Mometasone 100 MCG/PUFF (1 INHALER) INH SCH ×2 (07:25→19:53)
[2023-05-03] MEDS: Furosemide 40 MG/4 ML VIAL SLOW IVP SCH ×2 (07:29→13:15)
[2023-05-03] MEDS: Venlafaxine HCl XR 75 MG CAP PO SCH (09:16)
[2023-05-03] MEDS: Famotidine 20 MG TAB PO SCH (09:16)
[2023-05-03] MEDS: Aspirin 81 mg Enteric Coated Tablet PO SCH (09:17)
[2023-05-03] MEDS: Carvedilol 6.25 MG TAB PO SCH ×2 (09:17→21:58)
[2023-05-03] MEDS: Docusate 100 MG CAP PO SCH ×2 (09:17→21:59)
[2023-05-03] MEDS: Spironolactone 25 MG TAB PO SCH (09:17)
[2023-05-03] MEDS ORDERED: Furosemide 40 MG/4 ML VIAL SLOW IVP SCH (14:00)
[2023-05-03 20:36] LABS: Hep C PCR-Quant HCV Not Detected IU/mL (.)
[2023-05-03] MEDS ORDERED: Non-Formulary Medication 1 EACH (Tiotropium [Spiriva Handihaler] 18 MCG Box) INH SCH (21:00)
[2023-05-03] MEDS: Atorvastatin Calcium 40 MG TAB PO SCH (21:58)
[2023-05-03] MEDS: Terazosin HCl 5 MG CAP PO SCH (21:59)
[2023-05-03] MEDS: Insulin NPH Human Isophane 100 UNITS/ML (10 ML VIAL) SC SCH (22:03)
[2023-05-04 06:01] LABS: #Eosinphils 0.1 10x3/uL (0.0-0.5); #Monocytes 0.8 10x3/uL (0.0-1.1); #Neutrophils 4.2 10x3/uL (1.5-8.4); %Basophils 0.3 % (0.0-2.0); %Eosinophils 1.6 % (0.0-6.0); %Lymphocytes 18.2 % (18.0-47.0); %Monocytes 12.6 % (0.0-10.0); Hematocrit 32.6 % (38.8-50.0); Hemoglobin 11.1 g/dL (13.5-17.5); Mean Corpuscular Hemoglobin 29.4 pg (27.0-33.0); Mean Corpuscular Volume 86.2 fl (81.2-95.1); Mean Platelet Volume 11.2 fl (7.4-10.4); Platelet Count 211 10x3/uL (150-450); RBC Distribution Width 16.5 % (11.5-14.5); Red Blood Cell (RBC) Count 3.78 10x6/uL (4.32-5.72); White Blood Cell (WBC) Count 6.3 10x3/uL (3.5-10.5)
[2023-05-04 06:21] LABS: ALT (SGPT) Less than 7 U/L (8-55); AST (SGOT) 15 U/L (5-34); Albumin 2.9 g/dL (3.4-4.8); Alkaline Phosphatase 54 U/L (40-110); Anion Gap 14 mmol/L (10-20); BUN (Urea Nitrogen) 18 mg/dL (8.4-25.7); Bilirubin, Total 0.9 mg/dL (0.2-1.2); Calc. Creatinine Clearance 47 mL/min (70-130); Calcium 8.5 mg/dL (7.8-10.44); Carbon Dioxide 24 mmol/L (23-31); Chloride 102 mmol/L (98-107); Estimated GFR 46; Globulin 2.6 g/dL (2.4-3.5); Glucose 111 mg/dL (80-115); Magnesium 1.9 mg/dL (1.6-2.6); Potassium 3.9 mmol/L (3.5-5.1); Protein, Total 5.5 g/dL (5.8-8.1); Sodium 136 mmol/L (136-145)
[2023-05-04] MEDS: Mometasone 100 MCG/PUFF (1 INHALER) INH SCH ×2 (07:10→19:35)
[2023-05-04] MEDS: Furosemide 40 MG/4 ML VIAL SLOW IVP SCH ×2 (07:54→15:38)
[2023-05-04] MEDS: Albumin 25% 25 GM/100 ML BOT IVPB SCH ×3 (09:47→21:45)
[2023-05-04] MEDS: Docusate 100 MG CAP PO SCH ×2 (09:48→21:57)
[2023-05-04] MEDS: Venlafaxine HCl XR 75 MG CAP PO SCH (09:48)
[2023-05-04] MEDS: Famotidine 20 MG TAB PO SCH (09:48)
[2023-05-04] MEDS: Aspirin 81 mg Enteric Coated Tablet PO SCH (09:49)
[2023-05-04] MEDS: Spironolactone 25 MG TAB PO SCH (09:49)
[2023-05-04] MEDS: Insulin NPH Human Isophane 100 UNITS/ML (10 ML VIAL) SC SCH ×2 (09:51→21:44)
[2023-05-04] MEDS: Insulin Regular 300 UNITS/3 ML VIAL SC PRN ×3 (12:16→21:45)
[2023-05-04] MEDS: Ipratropium Bromide 2.5 ml Neb NEB SCH ×2 (13:20→19:35)
[2023-05-04] MEDS: Atorvastatin Calcium 40 MG TAB PO SCH (21:44)
[2023-05-04] MEDS: Terazosin HCl 5 MG CAP PO SCH (21:44)
[2023-05-04] MEDS: Acetaminophen 325 MG TAB PO PRN (21:47)
[2023-05-04] MEDS: Carvedilol 6.25 MG TAB PO SCH (21:53)
[2023-05-04] MEDS: traMADol HCl 50 MG TAB PO PRN (21:57)
[2023-05-05] MEDS: Ipratropium Bromide 2.5 ml Neb NEB SCH ×4 (02:00→19:25)
[2023-05-05] MEDS: Albumin 25% 25 GM/100 ML BOT IVPB SCH (03:52)
[2023-05-05 05:35] LABS: #Eosinphils 0.1 10x3/uL (0.0-0.5); #Monocytes 0.5 10x3/uL (0.0-1.1); #Neutrophils 3.4 10x3/uL (1.5-8.4); %Basophils 0.6 % (0.0-2.0); %Eosinophils 1.9 % (0.0-6.0); %Lymphocytes 16.3 % (18.0-47.0); %Monocytes 10.5 % (0.0-10.0); %Neutrophils 70.3 % (40.0-75.0); Hematocrit 30.7 % (38.8-50.0); Hemoglobin 10.5 g/dL (13.5-17.5); Mean Corpuscular HGB CONC 34.2 g/dL (32.0-36.0); Mean Corpuscular Hemoglobin 29.2 pg (27.0-33.0); Mean Corpuscular Volume 85.5 fl (81.2-95.1); Mean Platelet Volume 11.4 fl (7.4-10.4); Platelet Count 198 10x3/uL (150-450); RBC Distribution Width 16.4 % (11.5-14.5); Red Blood Cell (RBC) Count 3.59 10x6/uL (4.32-5.72); White Blood Cell (WBC) Count 4.9 10x3/uL (3.5-10.5)
[2023-05-05 05:51] LABS: ALT (SGPT) Less than 7 U/L (8-55); AST (SGOT) 12 U/L (5-34); Albumin 3.4 g/dL (3.4-4.8); Alkaline Phosphatase 43 U/L (40-110); Anion Gap 12 mmol/L (10-20); BUN (Urea Nitrogen) 16 mg/dL (8.4-25.7); Bilirubin, Total 0.9 mg/dL (0.2-1.2); Calc. Creatinine Clearance 52 mL/min (70-130); Calcium 8.6 mg/dL (7.8-10.44); Carbon Dioxide 25 mmol/L (23-31); Chloride 103 mmol/L (98-107); Estimated GFR 50; Globulin 2.5 g/dL (2.4-3.5); Glucose 124 mg/dL (80-115); Potassium 3.9 mmol/L (3.5-5.1); Protein, Total 5.9 g/dL (5.8-8.1); Sodium 136 mmol/L (136-145)
[2023-05-05] MEDS: Mometasone 100 MCG/PUFF (1 INHALER) INH SCH ×2 (06:40→20:28)
[2023-05-05] MEDS: Furosemide 40 MG/4 ML VIAL SLOW IVP SCH (06:50)
[2023-05-05] MEDS: Furosemide 40 MG TAB PO SCH ×2 (08:54→14:43)
[2023-05-05] MEDS: Carvedilol 6.25 MG TAB PO SCH ×2 (08:54→20:56)
[2023-05-05] MEDS: Venlafaxine HCl XR 75 MG CAP PO SCH (08:54)
[2023-05-05] MEDS: Famotidine 20 MG TAB PO SCH (08:54)
[2023-05-05] MEDS: Docusate 100 MG CAP PO SCH ×2 (08:54→20:55)
[2023-05-05] MEDS: Insulin NPH Human Isophane 100 UNITS/ML (10 ML VIAL) SC SCH ×2 (08:55→20:55)
[2023-05-05] MEDS: Spironolactone 25 MG TAB PO SCH (08:55)
[2023-05-05] MEDS: Aspirin 81 mg Enteric Coated Tablet PO SCH (08:55)
[2023-05-05] MEDS: Terazosin HCl 5 MG CAP PO SCH (20:55)
[2023-05-05] MEDS: Atorvastatin Calcium 40 MG TAB PO SCH (20:55)
[2023-05-05] MEDS: traMADol HCl 50 MG TAB PO PRN (20:55)
[2023-05-06] MEDS: Ipratropium Bromide 2.5 ml Neb NEB SCH ×3 (01:37→13:45)
[2023-05-06 06:09] LABS: #Eosinphils 0.1 10x3/uL (0.0-0.5); #Monocytes 0.5 10x3/uL (0.0-1.1); #Neutrophils 2.9 10x3/uL (1.5-8.4); %Basophils 0.7 % (0.0-2.0); %Eosinophils 2.7 % (0.0-6.0); %Lymphocytes 19.8 % (18.0-47.0); %Monocytes 11.1 % (0.0-10.0); %Neutrophils 65.3 % (40.0-75.0); Hematocrit 32.6 % (38.8-50.0); Mean Corpuscular HGB CONC 33.7 g/dL (32.0-36.0); Mean Corpuscular Hemoglobin 28.9 pg (27.0-33.0); Mean Corpuscular Volume 85.8 fl (81.2-95.1); Mean Platelet Volume 11.4 fl (7.4-10.4); Platelet Count 220 10x3/uL (150-450); RBC Distribution Width 16.7 % (11.5-14.5); White Blood Cell (WBC) Count 4.5 10x3/uL (3.5-10.5)
[2023-05-06 06:16] LABS: ALT (SGPT) Less than 7 U/L (8-55); AST (SGOT) 14 U/L (5-34); Albumin 3.4 g/dL (3.4-4.8); Alkaline Phosphatase 52 U/L (40-110); Anion Gap 16 mmol/L (10-20); BUN (Urea Nitrogen) 16 mg/dL (8.4-25.7); Bilirubin, Total 1.1 mg/dL (0.2-1.2); Calc. Creatinine Clearance 49 mL/min (70-130); Calcium 8.7 mg/dL (7.8-10.44); Carbon Dioxide 24 mmol/L (23-31); Chloride 102 mmol/L (98-107); Estimated GFR 46; Globulin 2.7 g/dL (2.4-3.5); Glucose 132 mg/dL (80-115); Protein, Total 6.1 g/dL (5.8-8.1); Sodium 138 mmol/L (136-145)
[2023-05-06] MEDS: Mometasone 100 MCG/PUFF (1 INHALER) INH SCH (07:15)
[2023-05-06 08:35] VITALS: TEMP 97.7
[2023-05-06] MEDS: Venlafaxine HCl XR 75 MG CAP PO SCH (09:56)
[2023-05-06] MEDS: Insulin NPH Human Isophane 100 UNITS/ML (10 ML VIAL) SC SCH (09:56)
[2023-05-06] MEDS: Spironolactone 25 MG TAB PO SCH (09:56)
[2023-05-06] MEDS: Furosemide 40 MG TAB PO SCH ×2 (09:57→13:34)
[2023-05-06] MEDS: Famotidine 20 MG TAB PO SCH (09:57)
[2023-05-06] MEDS: Aspirin 81 mg Enteric Coated Tablet PO SCH (09:57)
[2023-05-06] MEDS: Docusate 100 MG CAP PO SCH (09:57)
[2023-05-06] MEDS: Carvedilol 6.25 MG TAB PO SCH (09:57)
[2023-05-06] MEDS: traMADol HCl 50 MG TAB PO PRN (11:21)
[2023-05-06 12:48] VITALS: BP 108/71
[2023-05-06] MEDS: Insulin Regular 300 UNITS/3 ML VIAL SC PRN (13:34)
== END 2023-05-06 16:53 | DRG 291 ==
LOC: CSHTELE 09:09 → EEVIPCON 09:09
PROVIDERS: ADMIT Family Medicine; ATTEND Internal Medicine
PROC: 0W9G3ZX Drainage of Peritoneal Cavity, Percutaneous Approach, Diagnostic (ICD-10-PCS; principal; 2023-05-01)
PROC: 30233J1 Transfusion of Nonautologous Serum Albumin into Peripheral Vein, Percutaneous Approach (ICD-10-PCS; 2023-05-04)
DX: I13.0 Hypertensive heart and chronic kidney disease with heart failure and stage 1 through stage 4 chronic kidney disease, or unspecified chronic kidney disease (principal); I50.23 Acute on chronic systolic (congestive) heart failure; B20 Human immunodeficiency virus [HIV] disease; R18.8 Other ascites; I42.8 Other cardiomyopathies; B19.20 Unspecified viral hepatitis C without hepatic coma; K74.60 Unspecified cirrhosis of liver; E78.5 Hyperlipidemia, unspecified; I25.10 Atherosclerotic heart disease of native coronary artery without angina pectoris; R33.9 Retention of urine, unspecified; G47.33 Obstructive sleep apnea (adult) (pediatric); E11.22 Type 2 diabetes mellitus with diabetic chronic kidney disease; N18.30 Chronic kidney disease, stage 3 unspecified; E03.9 Hypothyroidism, unspecified; J44.9 Chronic obstructive pulmonary disease, unspecified; I95.9 Hypotension, unspecified; Z88.0 Allergy status to penicillin; Z91.010 Allergy to peanuts; Z79.82 Long term (current) use of aspirin; Z79.4 Long term (current) use of insulin; Z79.899 Other long term (current) drug therapy; Z95.810 Presence of automatic (implantable) cardiac defibrillator; Z87.891 Personal history of nicotine dependence; Z82.49 Family history of ischemic heart disease and other diseases of the circulatory system
CPT/HCPCS: 36415; 36416; 49083; 71045; 76705; 80053; 81001; 82042; 83735; 84157; 85025; 86704; 86706; 87070; 87086; 87205; 87340; 87522; 87902; 88112; 88305; 89051; 93005; 93010; 94640; 94664; 94760; J0696; J1650; J1815; J1940; J3490; P9047

== ENCOUNTER 2023-05-06 20:55 | Emergency (ER) | payer OTHER | END 2023-05-06 23:07 | LOC: CSHERS 20:55 → EEVIPCON 20:55 → CSHERS 23:07 | DX: E11.649 Type 2 diabetes mellitus with hypoglycemia without coma (principal); B20 Human immunodeficiency virus [HIV] disease; E03.9 Hypothyroidism, unspecified; E78.2 Mixed hyperlipidemia; Z87.891 Personal history of nicotine dependence; Z79.82 Long term (current) use of aspirin; Z79.4 Long term (current) use of insulin | CPT/HCPCS: 36416; 99285 ==